=== PATIENT | male | born 1980 | race African-American/Black ===

== ENCOUNTER 2020-06-17 10:44 | Inpatient (IN) | payer BC, OTHER ==
[2020-06-17] MEDS ORDERED: Calcium Chloride 1 GM/10 ML Abboject SYRINGE ONE (11:09)
[2020-06-17] MEDS ORDERED: Sodium Bicarb 50 MEQ/50 ML Abboject 8.4% SYRINGE ONE (11:09)
[2020-06-17] MEDS ORDERED: EPINEPHrine 1 MG/10 ML Abboject SYRINGE ONE (11:09)
--- NOTE | 2020-06-17 11:25 | PDOC.HHP ---
Hospitalist HPI - History of Present Illness Cough/SOB/fever/diarrhea History of Present Illness: Mr Shook is a 39-year-old male with a past medical history of hypertension and COVID infection diagnosed 1 months ago, presented to [place] ED with above symptoms. Over the past week, Pt has been feeling gen weak and fatigued. He started developing cough, shortness of breath, nausea, diarrhea and fever three days ago. Symptoms are progressively getting worse. Fever was associated with chills. Cough was productive with small amt of mucus. No wheezing reported. No new sick contacts. Denies recent immobilzation. No CP/palpitations/orthopnea/LE edema or syncope. ED Course: VITAL SIGNS ThuJun 17, 2020 08:09 HUE Nevarez Ladonna BP: 117/75, Pulse: 137, Resp: 24, Temp: 101 (Tympanic), Pain: 5, O2 sat: 94 on ( Room Air), Time: 06/17/2020 08:09. VITAL SIGNS ThuJun 17, 2020 09:00 HUE Nevarez Ladonna BP: 114/77, Pulse: 139, O2 sat: 94 on (Room Air), Time: 06/17/2020 09:00. VITAL SIGNS ThuJun 17, 2020 09:25 HUE Nevarez Ladonna BP: 130/85, Pulse: 130, Resp: 22, O2 sat: 98 on (Room Air), Time: 06/17/2020 09: 25. VITAL SIGNS ThuJun 17, 2020 09:50 HUE Nevarez Ladonna BP: 119/65, Pulse: 132, Resp: 26, O2 sat: 94 on (Room Air), Time: 06/17/2020 09: 50. VITAL SIGNS ThuJun 17, 2020 10:15 HUE Nevarez Ladonna BP: 117/67, Pulse: 126, Resp: 16, O2 sat: 98 on (Room Air), Time: 06/17/2020 10: 15. VITAL SIGNS ThuJun 17, 2020 10:45 HUE Nevarez Ladonna BP: 106/57, Pulse: 123, Resp: 20, O2 sat: 97 on (Room Air), Time: 06/17/2020 10: 45. VITAL SIGNS ThuJun 17, 2020 11:00 HUE Nevarez Ladonna BP: 127/76, Pulse: 127, Resp: 20, O2 sat: 95 on (Room Air), Time: 06/17/2020 11: 00. MEDICATION ADMINISTRATION SUMMARY Agra Jun 17, 2020 11:28 Drug Name Dose Ordered Route Status Time vancomycin in dextrose 5 % 2 g IV Piggy Back Acknowledged 08:34 06/17/2020 *potassium chloride in 0.9%NaCl 1 L IV Fluid Infusion Given 10:18 06/17/2020 *azithromycin intravenous 500 mg IV Piggy Back Given 10:00 06/17/2020 *enoxaparin 40 mg Subcutaneous Given 09:24 06/17/2020 *cefepime injection 2 g IV Piggy Back Given 09:23 06/17/2020 *Zofran intravenous 4 mg IV Push Given 09:20 06/17/2020 *sodium chloride 0.9 % intravenous 30 mL/kg IV Fluid Infusion Given 09:17 2019 Tylenol 1000 mg Oral Given 08:57 06/17/2020 Hospitalist ROS - Medication Medications: lisinopril-hydrochlorothiazide tablet : Strength - 10 mg-12.5 mg : ORAL Patient Dose: 1 tab(s) Oral once a day ALLERGIES: NKDA Hospitalist History - Past Medical History Cardiac: reports: HTN Pulmonary: reports: Other (Recent COVID - dianosed 05/17) - Past Surgical History Past Surgical History: reports: no pertinent history - Family History Family History: reports: no pertinent history (reviewed) - Social History Smoking Status: Never smoker Occupation: [employer] - [employer] Equipment - Exam General Appearance: NAD, awake alert Eye: PERRL, anicteric sclera ENT: normocephalic atraumatic, moist mucosa Neck: supple, no lymphadenopathy Heart: RRR, no murmur, no gallops Heart - other findings: tachycardia Respiratory: normal chest expansion, rales Gastrointestinal: soft, non-tender, non-distended, normal bowel sounds Extremities: no edema Neurological: cranial nerve grossly intact, no focal deficits Psychiatric: normal affect, normal behavior Hospitalist Results - Labs Result Diagrams: 06/18/20 04:20 06/18/20 04:20 Lab results: LABORATORY Agra Jun 17, 2020 09:45 MD Dubon Anthony Measurement Result Units Range Comprehensive Metabolic Panel Collection DT: Agra Jun 17, 2020 09:22 Sodium 137 mmol/L 136-145 Potassium 3.2 - L mmol/L 3.5-5.1 Chloride 101 mmol/L 98-107 Carbon Dioxide 23 mmol/L 22-29 Anion Gap 16 mmol/L 10-20 BUN (Urea Nitrogen) 14 mg/dL 8.9-20.6 Creatinine 1.35 - H mg/dL 0.7-1.3 Estimated GFR-MDRD 72 Reference Range for Estimated GFR: Greater than 90 mL/min/1.73 m2 NOTE: The MDRD equation has not been validated for use with the elderly (over 70 years of age), women, patients with serious comorbid condition or persons with extremes of body size, muscle mass, or nutritional status. Glucose 172 - H mg/dL 70-105 Calcium 8.9 mg/dL 7.8-10.44 Bilirubin, Total 1.7 - H mg/dL 0.2-1.2 Protein, Total 7.5 g/dL 6.0-8.3 Albumin 3.6 g/dL 3.5-5.0 Globulin 3.9 - H g/dL 2.4-3.5 Alb/Glob Ratio 0.9 - L g/dL 1.2-2.2 Alkaline Phosphatase 61 U/L 40-110 AST (SGOT) 78 - H U/L 5-34 ALT (SGPT) 119 - H U/L 8-55 Measurement Result Units Range Lactic Acid for Sepsis Collection DT: ThuJun 17, 2020 09:22 Lactic Acid - Sepsis 2.0 mmol/L 0.5-2.2 Measurement Result Units Range D-Dimer (Quantitative) Collection DT: ThuJun 17, 2020 09:25 D-Dimer Test 3.46 - H *mcg/mL 0.27-0.43 * Reference Range Units: mcg/mL of fibrinogen equivalent units(FEU) Based upon a retrospective study of [facility] patients in March 2006, a result of Less than 0.44 mcg/mL FEU is predictive of the absence of a DVT or PE. Measurement Result Units Range Influenza A&B Ag Screen: [id number] Collection DT: ThuJun 17, 2020 09:39 See comment below @ ER ROOM#: [id number] Source: Nasopharyngeal swab Spec Desc: Influenza A Antigen: NEGATIVE for the presence of INFLUENZA A Antigen Influenza B Antigen: NEGATIVE for the presence of INFLUENZA B Antigen The rapid Flu A&B test can distinguish between influenza A Influenza A&B Ag Screen See comment below and B viruses, but it does not differentiate influenza Influenza A&B Ag Screen See comment below subtypes. Influenza A&B Ag Screen See comment below Influenza A&B Ag Screen See comment below Influenza A&B Ag Screen See comment below Influenza A&B Ag Screen See comment below characteristics of this device with human specimens infected Influenza A&B Ag Screen See comment below with the 2008 H1N1 influenza virus have not been Influenza A&B Ag Screen See comment below established. For example: this test cannot distinguish Influenza A&B Ag Screen See comment below influenza infections caused by novel H1N1 influenza A Influenza A&B Ag Screen See comment below viruses versus seasonal influenza A viruses. Influenza A&B Ag Screen See comment below Influenza A&B Ag Screen See comment below A negative result does not exclude influenza virus Influenza A&B Ag Screen See comment below infection; therefore, if more conclusive testing is desired, Influenza A&B Ag Screen See comment below follow up confirmatory testing is warranted. Influenza A&B Ag Screen See comment below Measurement Result Units Range CBC with Differential Collection DT: Agra Jun 17, 2020 09:22 White Blood Cell (WBC) Count 8.3 thou/uL 4.8-10.8 Red Blood Cell (RBC) Count 5.53 mill/uL 4.70-6.10 Hemoglobin 13.5 - L g/dL 14.0-18.0 Hematocrit 42.8 % 42.0-52.0 Mean Corpuscular Volume 77.3 - L fL 78.0-98.0 Mean Corpuscular Hemoglobin 24.4 - L pg 27.0-31.0 Mean Corpuscular HGB CONC 31.6 - L g/dL 32.0-36.0 RBC Distribution Width 14.4 % 11.5-14.5 Platelet Count 109 - L thou/uL 130-400 Mean Platelet Volume 8.6 fL 7.4-10.4 Neutrophil 48 % 42-75 Band 38 - H % 5-11 Lymphocytes 3 - L % 21-51 Monocytes 11 - H % 0-10 Anisocytosis SLIGHT = 6-15 cells (100X) 0-5/hpf Microcytosis SLIGHT = 6-15 cells (100X) 0-5/hpf Hypochromia SLIGHT = 6-15 cells (100X) 0-5/hpf Large Platelets SLIGHT Platelet Morphology Comment Appears Decreased - L Measurement Result Units Range Magnesium Collection DT: Agra Jun 17, 2020 09:58 Magnesium 1.6 mg/dL 1.6-2.6 Measurement Result Units Range PTT Collection DT: Agra Jun 17, 2020 10:27 See comment below Anticoagulant? NONE Medical Necessity SUSPECT COAGULOPATHY PTT 35.7 sec 22.9-36.1 Measurement Result Units Range Protime with INR Collection DT: Agra Jun 17, 2020 10:27 See comment below Anticoagulant? NONE Medical Necessity SUSPECT COAGULOPATHY Prothrombin Time 15.5 - H sec 12.0-14.7 INR-International Normal Ratio 1.2 ATTENTION: READ CAREFULLY The recommended therapeutic ranges for oral anticoagulant treatments are: Low Intensity: 1.5 - 2.0 Moderate Intensity: 2.0 - 3.0 High Intensity (1): 2.5 - 3.5 High Intensity (2): 3.0 - 4.0 CRITICAL: > 4.0 Measurement Result Units Range CRP (Inflammatory) Collection DT: Agra Jun 17, 2020 10:41 CRP (Inflammatory) 33.14 - H mg/dL = or < 0.5 - EKG Interpretation EKG: Tele ST - reviewed by me - Radiology Interpretation CT scan - chest Status: image reviewed by me Additional Comment: Chest CT, without contrast : Right middle lobe pneumonia with air bronchograms and perihilar lymphadenopathy. Hospitalist H&P A/P - Plan Plan: Severe Sepsis due to RML Pneumonia ?staph Gen weakness/Fatigue Lactic acidosis Recent COVID-19 - diagnosed 05/17 Diarrhea - r/o C diff CKD 2 Sinus tachycardia due to above HTN Morbid obesity 43.2 PLAN: COVID swab Flu ruled out Tele monitoring Empiric Atbx - Vanc/Cefepime/Azithromycin Monitor infl markers Check for Cdiff due to recent Atbx use IVF Vitals Q4h ID consultation Sputum GS and culture AM labs Check BNP/troponin Hold HTN meds
[2020-06-17] MEDS ORDERED: Ondansetron ODT 4 MG TAB PO PRN (13:01)
[2020-06-17] MEDS ORDERED: cloNIDine 0.1 MG TAB PO PRN (13:01)
[2020-06-17] MEDS ORDERED: Sodium Chloride 0.9% 1,000 ML IV SCH ×2 (13:01→15:15)
[2020-06-17] MEDS ORDERED: Vancomycin 1 GM in Premix Bag 1 BAG IVPB SCH (13:01)
[2020-06-17] MEDS ORDERED: Calcium Carbonate 500 MG ChewTAB PO PRN (13:01)
[2020-06-17] MEDS ORDERED: Senokot S 8.6-50 MG TAB PO PRN (13:01)
[2020-06-17] MEDS: Ondansetron PF 4 MG/2 ML Vial IVP PRN ×2 (14:07→21:38)
[2020-06-17] MEDS: ALPRAZolam 0.25 MG TAB PO PRN (14:07)
[2020-06-17 14:31] LABS: Lactic Acid 4.2 mmol/L (0.5-2.2)
[2020-06-17 14:37] LABS: Troponin I 0.014 ng/mL (< 0.028)
[2020-06-17] MEDS ORDERED: Vancomycin HCl 2.5 GM in Sodium Chloride 0.9% 500 ML IVPB SCH (15:00)
[2020-06-17 15:07] VITALS: BMI 43.2
[2020-06-17] MEDS: Acetaminophen 325 MG TAB PO PRN ×2 (15:25→21:29)
[2020-06-17 17:16] LABS: SARS-CoV-2 IgG Ab Reactive (NonReactive); SARS-CoV-2 IgG Index 7.31 S/CO (< 1.40)
[2020-06-17] MEDS ORDERED: Ketorolac Tromethamine 30 MG/ML VIAL IVP SCH ×2 (17:30→20:00)
--- NOTE | 2020-06-17 18:09 | CON ---
DATE OF CONSULTATION: REASON FOR CONSULTATION: General malaise, fever following recent episode of COVID infection with transient recovery and then recrudescence of symptoms. 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 He about a month ago was seen and diagnosed with COVID. His management with did not require hospital admission and after a couple weeks, he felt better, improved, went back to his baseline, back to work eventually. Then a few days ago, he started having, what he describes as, discomfort in his chest. He did have some cough, but that has resolved. He had some loose stool, which has resolved. Had some fever as well, so he was brought in and admitted. The initial findings included a BP 117/75, pulse 137, respiratory rate 24, and temperature 101, O2 saturations were 94 on room air and he has remained between 94 98 on room air. He appeared ill in the emergency room, a little bit tachypneic, diminished breath sounds in lower lobes. He was tachycardic. Currently, he is still not feeling well, but is not having any specific pain, just a nonspecific discomfort in the chest. Does not have myalgias or arthralgias. No headaches. No dyspnea. No sputum production. No abdominal pain. No genitourinary symptoms, no diarrhea anymore. PAST MEDICAL HISTORY: Obesity, hypertension. ALLERGIES: NONE. MEDICATIONS: Had been on lisinopril at home. 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 Never smoker. FAMILY HISTORY: Hypertension. SURGICAL HISTORY: Negative. ALLERGIES: NEGATIVE. PHYSICAL EXAMINATION: VITAL SIGNS: In the hospital include a temperature max of 103.4, BP 130/74, O2 saturations 94% to 100%, tachycardic at 140. GENERAL: He is oriented, follows commands, pleasant. SKIN: Normal. There is no lymphadenopathy. HEENT: Ocular movements conjugate. Oral cavity normal. Teeth in good shape. NECK: Supple. LUNGS: Symmetric, clear breath sounds. HEART: S1, S2 regular rate. ABDOMEN: Soft, not distended or tender. No ascites. No bladder distention. MUSCULOSKELETAL: No joint inflammatory activity. No muscle tenderness. EXTREMITIES: Pulses 1+ in dorsalis pedis. Plantar responses are flexor. No clonus. Moves extremities equally. NEUROLOGIC: Awake, alert, oriented, follows commands. Speech is normal. LABORATORY DATA: Lactic acid is 4.2, ferritin 3900. BNP 14. White cell count 8.3, hemoglobin 13, platelets 109,000 with 82% bands. INR 1.2. D-dimer 3.46. Creatinine 1.35. Bilirubin 1.7, AST 78, ALT 119, albumin 3.6, globulin 3.9. He had a reactive COVID antibody, high titers. A repeat SARS-CoV2 PCR I believe is pending at this moment. CT chest shows a right lower lobe infiltrate with air bronchograms and some reactive lymphadenopathy. ASSESSMENT: Hypertension, recent COVID infection, reported in [place] and treated in the outpatient setting with recovery and now fever with chest discomfort and dense consolidation which appears more like a bacterial pneumonia than COVID infection. DISCUSSION: This appears to be a postviral bacterial infection and I agree with the antimicrobial regimen administered. We will see what the results of the COVID repeat PCR returns clerk to be and we will submit Legionella and Streptococcus pneumoniae antigen in the urine. The other concern would be with that inflammatory process that has been described in children and sometimes in young adults post COVID infection, but here we do have a very focal lung process and I think we should address it as such and see if there is response to the antimicrobial therapy. Job ID: [id number]
[2020-06-17] MEDS: Enoxaparin Sodium 40 MG/0.4 ML SYRINGE SC SCH (19:19)
[2020-06-17] MEDS: Sodium Chloride 0.9% 1,000 ML IV SCH (19:19)
[2020-06-17] MEDS: Saccharomyces boulardii 250 MG CAP PO SCH (19:20)
[2020-06-17] MEDS: Famotidine 20 MG TAB PO SCH (19:20)
[2020-06-17] MEDS: Zinc Sulfate 220 MG CAP PO SCH (19:20)
[2020-06-17] MEDS ORDERED: diphenhydrAMINE 25 MG CAP PO SCH (20:15)
[2020-06-17 20:36] LABS: Lactic Acid 3.3 mmol/L (0.5-2.2)
[2020-06-17] MEDS: Cefepime 2 GM in Sodium Chloride 0.9% 100 ML IVPB SCH (21:29)
[2020-06-17] MEDS: HYDROcodone/Acetaminophen 5/325 mg Tablet PO PRN (21:38)
[2020-06-18] MEDS: Vancomycin 1.5 GRAM/300 ML BAG 1.5 GM in Premix Bag 1 BAG IVPB SCH ×2 (03:03→14:49)
[2020-06-18] MEDS: Sodium Chloride 0.9% 1,000 ML IV SCH ×3 (03:04→14:57)
[2020-06-18] MEDS: Ondansetron PF 4 MG/2 ML Vial IVP PRN (03:17)
[2020-06-18] MEDS: HYDROcodone/Acetaminophen 5/325 mg Tablet PO PRN ×2 (03:17→08:15)
[2020-06-18 03:59] LABS: Strep pneumo Urine Ag NEGATIVE (NEGATIVE)
[2020-06-18 05:07] LABS: Lactic Acid 3.9 mmol/L (0.5-2.2)
[2020-06-18 05:16] LABS: ALT (SGPT) 123 U/L (8-55); AST (SGOT) 97 U/L (5-34); Albumin 3.2 g/dL (3.5-5.0); Alkaline Phosphatase 56 U/L (40-110); Anion Gap 16 mmol/L (10-20); BUN (Urea Nitrogen) 13 mg/dL (8.9-20.6); Bilirubin, Total 1.7 mg/dL (0.2-1.2); Calc. Creatinine Clearance 132 mL/min (70-130); Calcium 7.6 mg/dL (7.8-10.44); Carbon Dioxide 18 mmol/L (22-29); Chloride 107 mmol/L (98-107); Estimated GFR-MDRD 69; Globulin 3.1 g/dL (2.4-3.5); Glucose 104 mg/dL (70-105); Protein, Total 6.3 g/dL (6.0-8.3); Sodium 138 mmol/L (136-145)
[2020-06-18 05:42] LABS: Band 34 % (5-11); Eosinophils 1 % (0-10); Hemoglobin 12.1 g/dL (14.0-18.0); Hypochromia SLIGHT = 6-15 cells (100X) (0-5/hpf); Lymphocytes 6 % (21-51); MDiff Complete? YES; Mean Corpuscular Hemoglobin 25.5 pg (27.0-31.0); Mean Corpuscular Volume 79.9 fL (78.0-98.0); Mean Platelet Volume 11.1 fL (7.4-10.4); Metamyelocyte 1 % (0-0); Monocytes 12 % (0-10); Neutrophil 46 % (42-75); Platelet Count 101 thou/uL (130-400); Platelet Morphology Comment Appears Decreased; RBC Distribution Width 15.9 % (11.5-14.5); Red Blood Cell (RBC) Count 4.74 mill/uL (4.70-6.10); White Blood Cell (WBC) Count 9.9 thou/uL (4.8-10.8)
[2020-06-18] MEDS: ALPRAZolam 0.25 MG TAB PO PRN (05:44)
[2020-06-18] MEDS ORDERED: diphenhydrAMINE 25 MG CAP PO PRN (06:13)
[2020-06-18] MEDS: Potassium Chloride 20 MEQ TAB PO SCH ×3 (08:15→15:55)
[2020-06-18] MEDS: Famotidine 20 MG TAB PO SCH (08:15)
[2020-06-18] MEDS: Enoxaparin Sodium 40 MG/0.4 ML SYRINGE SC SCH (08:16)
[2020-06-18] MEDS: Cefepime 2 GM in Sodium Chloride 0.9% 100 ML IVPB SCH ×2 (08:17→19:56)
--- NOTE | 2020-06-18 08:36 | PDOC.HOSPP ---
- Subjective Encounter Date: 06/18/20 Encounter Time: 09:30 Subjective: Patient seen and examined for Pneumonia. SOB on mild exertion. On O2 supp. No CP. No new complaints. No overnight events - Objective Vital Signs & Weight: Vital Signs (12 hours) Temp Pulse Resp BP Pulse Ox 06/18/20 07:45 101.6 F H 148 H 40 H 94 L 06/18/20 05:45 100.8 F H 06/18/20 04:59 101.0 F H 06/18/20 03:25 101.5 F H 136 H 28 H 138/89 93 L 06/17/20 23:46 100.7 F H 124 H 32 H 110/53 L 94 L 06/17/20 22:32 94 L 06/17/20 21:28 102.2 F H Weight Weight 284 lb 3.2 oz I&O: 06/17/20 06/18/20 06/19/20 06:59 06:59 06:59 Intake Total 1980 Output Total 350 Balance 1630 Result Diagrams: 06/18/20 04:20 06/18/20 04:20 Additional Labs: Laboratory Tests 06/17/20 06/17/20 06/17/20 14:02 14:02 14:02 Lactic Acid Total Bilirubin Troponin I 0.014 B-Natriuretic Peptide 14.0 SARS-CoV-2 IgG Ab Index 7.31 Ur Strep pneumoniae Ag 06/17/20 06/17/20 06/18/20 14:02 20:09 03:15 Lactic Acid 4.2 H* 3.3 H Total Bilirubin Troponin I B-Natriuretic Peptide SARS-CoV-2 IgG Ab Index Ur Strep pneumoniae Ag NEGATIVE 06/18/20 06/18/20 04:20 04:20 Lactic Acid 3.9 H Total Bilirubin 1.7 H Troponin I B-Natriuretic Peptide SARS-CoV-2 IgG Ab Index Ur Strep pneumoniae Ag Laboratory Tests 06/17/20 06/18/20 06/18/20 09:20 04:20 10:15 Bicarbonate Actual 17.6 L ABG pH 7.21 L* ABG pCO2 45.1 H ABG pO2 64.6 L Phosphorus 2.0 L Magnesium 1.2 L C-Reactive Protein 33.14 H Radiology Reviewed by me: Yes (CXR - RML Pneumonia) EKG Reviewed by me: Yes (Tele ) Hospitalist ROS - Review of Systems Respiratory: reports: cough, dry, shortness of breath, SOB with excertion. denies: hemoptysis, pleuritic pain, sputum, wheezing, other Cardiovascular: denies: chest pain, palpitations, orthopnea, paroxysmal noc. dyspnea, edema, light headedness, other Gastrointestinal: denies: nausea, vomiting, abdominal pain, diarrhea, constipation, melena, hematochezia, other - Medication Medications: Active Medications Generic Name Dose Route Start Last Admin Trade Name Freq PRN Reason Stop Dose Admin Acetaminophen 325 mg 06/17/20 13:01 06/17/20 21:29 Tylenol PO 325 mg Q6H PRN Administration Headache/Fever or Pain Hydrocodone Bitart/Acetaminophen 1 tab 06/17/20 13:01 06/18/20 08:15 Piercy 5/325 PO 1 tab Q4H PRN Administration Moderate Pain (4-6) Alprazolam 0.25 mg 06/17/20 13:41 06/18/20 05:44 Xanax PO 0.25 mg BIDPRN PRN Administration Anxiety Ascorbic Acid 1,000 mg 06/18/20 09:00 06/18/20 08:15 Vitamin C PO 1,000 mg DAILY KHANH Administration Diphenhydramine HCl 25 mg 06/18/20 06:13 06/18/20 06:30 Benadryl PO 25 mg Q6H PRN Administration Itching & Insomnia Enoxaparin Sodium 40 mg 06/17/20 21:00 06/18/20 08:16 Lovenox SC 40 mg 0900,2100 KHANH Administration Famotidine 20 mg 06/17/20 21:00 06/18/20 08:15 Pepcid PO 20 mg BID KHANH Administration Cefepime HCl 2 gm/ Sodium 100 mls @ 200 mls/hr 06/17/20 21:00 06/18/20 08:17 Chloride IVPB 100 mls 0900,2100 KHANH Administration Vancomycin HCl 1.5 gm/ Device 300 mls @ 200 mls/hr 06/18/20 03:00 06/18/20 03 :03 IVPB 300 mls 0300,1500 KHANH Administration Sodium Chloride 1,000 mls @ 150 mls/hr 06/17/20 17:17 06/18/20 03:04 Normal Saline 0.9% IV 1,000 mls .Q6H40M KHANH Administration Multivitamins 1 tab 06/18/20 09:00 06/18/20 08:15 Theragran PO 1 tab DAILY KHANH Administration Ondansetron HCl 4 mg 06/17/20 13:01 06/18/20 03:17 Zofran IVP 4 mg Q6H PRN Administration Nausea/Vomiting Potassium Chloride 20 meq 06/18/20 08:00 06/18/20 08:15 K-Dur PO 06/18/20 17:01 20 meq TID-WM KHANH Administration Saccharomyces Boulardii 250 mg 06/17/20 21:00 06/17/20 19:20 Florastor PO 250 mg HS KHANH Administration Zinc Sulfate 220 mg 06/17/20 21:00 06/17/20 19:20 Zinc Sulfate PO 220 mg HS KHANH Administration - Exam General Appearance: ill appearing Heart: RRR (tachycardic), no gallops Respiratory: no wheezes, normal chest expansion, rales, rhonchi, tachypneic Gastrointestinal: soft, non-distended, no guarding, no rigidity Extremities: no cyanosis, no clubbing Neurological: no new deficit Psychiatric: normal affect, A&O x 3 Hosp A/P - Plan DVT proph w/lovenox, DVT proph w/SCDs Severe Sepsis due to RML Pneumonia ?staph Acute hypoxic resp failure Gen weakness/Fatigue Lactic acidosis Hypokalemia/Hypomagnesemia/Hypophosphatemia Abn LFTS - prob due to Sepsis Recent COVID-19 - diagnosed 05/17 Diarrhea - C diff ruled out CKD 2 Sinus tachycardia due to above HTN Morbid obesity 43.2 Anxiety PLAN: 06/18 Requiring O2/febrile with persistent tachycardia Replace electrolytes Cont IVF Cont Vanc/Cefep/Azith Monitor Vanc levels Consult Pulm STAT ABG - done CXR - done AM labs EKG - ST Update : - Pt was later intubated and placed on mech Vent. Also started on pressors 06/17 on RA COVID swab Flu ruled out Tele monitoring Empiric Atbx - Vanc/Cefepime/Azithromycin Monitor infl markers Check for Cdiff due to recent Atbx use IVF Vitals Q4h ID consultation Sputum GS and culture AM labs Check BNP/troponin Hold HTN meds
[2020-06-18] MEDS ORDERED: ALPRAZolam 0.25 MG TAB PO PRN (08:44)
[2020-06-18] MEDS ORDERED: ALPRAZolam 0.25 MG TAB PO SCH (09:00)
[2020-06-18] MEDS ORDERED: Multivit, Therapeutic 1 TAB PO SCH (09:00)
[2020-06-18] MEDS ORDERED: Ascorbic Acid 500 mg Chewable Tablet PO SCH (09:00)
[2020-06-18 09:24] LABS: Magnesium 1.2 mg/dL (1.6-2.6)
[2020-06-18 10:39] LABS: Actual Bicarbonate (HCO3a) 17.6 mEq/L (22-28); Base Excess (BEa) -10.1 mEq/L (-2.0 to +3.0); CO2 Tension 45.1 mmHg (35.0-45.0); Calcium, Ionized (arterial) 1.01 mmol/L (1.12-1.30); Carboxyhemoglobin (COHb) 0.7 gm% (0.0-3.0); O2 Tension (PaO2), arterial 64.6 mmHg (80.0-100.0); Potassium - ABG Lab 3.59 mmol/L (3.70-5.30)
--- NOTE | 2020-06-18 11:02 | RAD ---
EXAM: CHEST ONE VIEW HISTORY: Shortness of breath. COMPARISON: 06/15/2020 and CTA chest on 06/17/2020 FINDINGS: Again noted is elevation the right hemidiaphragm. There is also increased density seen at the right l anju base which was not appreciated on the prior chest x-ray, there was consolidation seen at the right lung base associated pleural effusion on recent CTA chest. Left lung remains clear. Right cardi ac border is obscured. Pulmonary vasculature is within normal limits. Gaseous distention of the stomach is again seen. No other interval change. IMPRESSION: Elevation right hemidiaphragm with increased density right lung base. Increased density likely corres ponds to consolidation in the right middle lobe worrisome for pneumonia and associated small right pleural effusion seen on CTA chest on 06/17/2020. Follow-up to resolution is recommended.
[2020-06-18] MEDS ORDERED: PROPOFOL 200 MG/20 ML VIAL ONE (11:03)
[2020-06-18] MEDS ORDERED: Succinylcholine Chloride 20 MG/ML 10 ml SYRINGE FS ONE (11:03)
[2020-06-18] MEDS ORDERED: Rocuronium Bromide 10 MG/ML (10ML VIAL) ONE (11:03)
[2020-06-18] MEDS ORDERED: Propofol 1,000 MG/100 ML VIAL IV ONE (11:21)
[2020-06-18 11:24] LABS: ALV-art Gradient 78.665 (0-20); Puncture Site LRA; pH, Arterial 7.21 (7.35-7.45)
[2020-06-18] MEDS ORDERED: Fentanyl BOLUS 250 ML IVPB PRN (12:11)
[2020-06-18] MEDS ORDERED: fentaNYL Citrate/PF 2,000 MCG in Sodium Chloride 0.9% 60 ML IV SCH (12:11)
[2020-06-18] MEDS ORDERED: Lorazepam 2 MG/ML VIAL SLOW IVP PRN (12:11)
[2020-06-18] MEDS ORDERED: DISCONTINUE PREVIOUS NARCOTIC PAIN MEDICATIONS AND BENZODIAZEPINES FS SCH (12:11)
[2020-06-18] MEDS ORDERED: Morphine 2 MG/ML VIAL SLOW IVP PRN (12:11)
[2020-06-18] MEDS ORDERED: Propofol BOLUS 1,000 MG/100 ML VIAL IV PRN (12:11)
[2020-06-18] MEDS ORDERED: Fentanyl 100 MCG/2 ML VIAL ONE (12:15)
[2020-06-18] MEDS ORDERED: Vecuronium 10 MG VIAL ONE (12:16)
[2020-06-18] MEDS: Albumin 25% 25 GM/100 ML BOT IVPB SCH ×3 (12:20→22:25)
[2020-06-18 12:24] LABS: Actual Bicarbonate (HCO3a) 14.5 mEq/L (22-28); Base Excess (BEa) -11.7 mEq/L (-2.0 to +3.0); CO2 Tension 33.9 mmHg (35.0-45.0); Calcium, Ionized (arterial) 0.98 mmol/L (1.12-1.30); Carboxyhemoglobin (COHb) 0.1 gm% (0.0-3.0); Hemoglobin (Hb) 12.7 g/dL (14.0-18.0); O2 Tension (PaO2), arterial 144.4 mmHg (80.0-100.0)
[2020-06-18] MEDS ORDERED: Sodium Bicarb 50 MEQ/50 ML Abboject 8.4% SYRINGE ONE ×2 (12:29→23:00)
[2020-06-18 12:30] LABS: ALV-art Gradient 526.225 (0-20); Puncture Site LRA; pH, Arterial 7.25 (7.35-7.45)
[2020-06-18] MEDS ORDERED: Albumin 5% 0 ML ONE (12:31)
[2020-06-18] MEDS ORDERED: Albumin 25% 25 GM/100 ML BOT IVPB SCH (13:00)
[2020-06-18] MEDS ORDERED: Fentanyl 100 MCG/2 ML VIAL SLOW IVP SCH (13:00)
[2020-06-18] MEDS ORDERED: Sodium Chloride 0.9% 1,000 ML IV SCH (13:00)
[2020-06-18] MEDS ORDERED: Sodium Bicarbonate 100 MEQ in Dextrose 5% in Water 1,000 ML IV SCH (13:00)
[2020-06-18] MEDS ORDERED: Sodium Bicarbonate 150 MEQ in Dextrose 5% in Water 1,000 ML IV SCH (13:45)
[2020-06-18] MEDS: Azithromycin 500 MG in Sodium Chloride 0.9% 250 ML 250 ML IVPB SCH ×2 (14:47→16:38)
[2020-06-18] MEDS: Propofol 1,000 MG/100 ML VIAL IV PRN ×2 (14:54→21:00)
[2020-06-18] MEDS ORDERED: Norepinephrine 8 MG in Dextrose 5% in Water 242 ML IVPB PRN (15:44)
[2020-06-18] MEDS ORDERED: Norepinephrine 8 MG/0.9% NS 250 ML ONE (15:55)
[2020-06-18] MEDS ORDERED: Norepinephrine 8 MG/0.9% NS 250 ML IVPB SCH (16:23)
[2020-06-18 16:36] VITALS: BP 99/70
--- NOTE | 2020-06-18 17:04 | PRG ---
DATE OF SERVICE: 06/18/2020 SUBJECTIVE: Mr. Shook has taken a turn for the worst. He had to be transferred to the ICU. He is now mechanically ventilated. He had very high temperature elevation overnight. OBJECTIVE: VITAL SIGNS: His temperature now is 97, but it is most likely due to the corticosteroid that is administered; blood pressure is 101/72; pulse 132; respiratory rate 31; O2 sats are 95% on 60% FiO2. LUNGS: Symmetric, coarse breath sounds. HEART: S1 and S2, regular rate. ABDOMEN: Soft. Not distended. Indwelling Frey catheter. NEUROLOGIC: Cannot test his motion right now. LABORATORY DATA: White cell count 9.9, hemoglobin 12.1, platelets 101, with 34% bands. PH 7.25, pCO2 of 33, pO2 of 144. Sodium 138, creatinine 1.4, bilirubin 1.7, AST 97, ALT 123. Phosphorus 2.0, magnesium 1.2, albumin 3.2. SARS-CoV IgG antibody was reactive. Streptococcus pneumoniae antigen negative. Chest x-ray with elevation of right hemidiaphragm, increased density right lung base, likely consolidation, small pleural effusion likely. ASSESSMENT: Recent COVID infection, which was managed in the outpatient setting with improvement and now with this syndrome with cough, some loose stools, fever, and right lower base infiltrate. He did have a chest CT angiogram, which did not show any evidence of pulmonary embolism. Hypertension and COVID infection, treated in the outpatient setting, now with this right lower lobe infiltrate and sepsis, requiring mechanical ventilation. The possibility of that COVID associated inflammatory process needs to be considered as well versus a postviral bacterial infection. He is on broader spectrum with vancomycin added to the regimen. Job ID: [id number]
[2020-06-18] MEDS: methylPREDNISolone Sod Succ 40 MG VIAL IVP SCH ×2 (17:26→22:25)
[2020-06-18] MEDS ORDERED: Magnesium Sulfate 4 GM in Sodium Chloride 0.9% 250 ML 250 ML IVPB SCH (18:15)
[2020-06-18] MEDS ORDERED: Potassium Phosphate 30 MMOL in Sodium Chloride 0.9% 500 ML IVPB SCH (18:15)
[2020-06-18] MEDS: Saccharomyces boulardii 250 MG CAP PO SCH (19:57)
[2020-06-18] MEDS: Zinc Sulfate 220 MG CAP PO SCH (19:57)
[2020-06-18] MEDS: Enoxaparin Sodium 60 MG/0.6 ML SYRINGE SC SCH ×2 (20:49→21:00)
[2020-06-18] MEDS ORDERED: Famotidine/PF 20 mg/2ml Vial SLOW IVP SCH (21:00)
[2020-06-18] MEDS ORDERED: Vecuronium 10 MG VIAL IVP PRN (21:57)
[2020-06-18] MEDS: Acetaminophen 325 MG TAB PO PRN (22:25)
[2020-06-18 22:56] LABS: Base Excess (BEa) -20.3 mEq/L (-2.0 to +3.0); CO2 Tension 68.2 mmHg (35.0-45.0); Hemoglobin (Hb) 12.1 g/dL (14.0-18.0); O2 Tension (PaO2), arterial 49.6 mmHg (80.0-100.0)
[2020-06-18 22:57] LABS: Calcium, Ionized (arterial) 1.35 mmol/L (1.12-1.30); Carboxyhemoglobin (COHb) 0.3 gm% (0.0-3.0); Potassium - ABG Lab 4.71 mmol/L (3.70-5.30); Puncture Site RRA
[2020-06-18] MEDS ORDERED: Acetaminophen 650 MG Suppository PR SCH (23:00)
--- NOTE | 2020-06-18 23:16 | RAD ---
Exam: Chest one view HISTORY:CODE BLUE Comparison: 06/18/2020 FINDINGS: Cardiac silhouette:Cardiomegaly. Aorta: Unremarkable Pulmonary vessels: Normal Costophrenic angles: Clear LUNGS: Diminished lung volumes, similar to the previous exam. Pneumothorax: No definite pneumothorax Osseous abnormalities: None Lines and tubes: Nasogastric tube extends beyond the diaphragm. Distal tip appears to terminate in th e stomach. Endotracheal tube is just beyond the clavicles and appears to be approximately 1 cm above the nikia. IMPRESSION: 1. Persistently diminished lung volumes. 2. Endotracheal tube and nasogastric tube as described above. Endotracheal tube is just proximal to t he nikia. Results study discussed with Shayna patient's nurse 06/18/2020 at 11:15 PM Code CR
--- NOTE | 2020-06-19 | PRG ---
DATE OF SERVICE: 06/18/2020 Mr. Shook developed asystole tonight. He had been on pressors prior to that. He was resuscitated. Once he was resuscitated, his pH was noted to be 6.90, CO2 of 68, and PO2 of 49. In approximately 15 to 20 minutes, we restored circulation and coded again. In spite of administration of bicarb during the last code, it was felt that he cannot survive this. The second code was terminated. He was pronounced at 1105 hours. His is apparently on the way from [place], [place]. She will be notified when she arrives. It is felt that he most likely from overwhelming sepsis associated with a bacterial pneumonia downstream from a COVID infection and not secondary to COVID. Critical care time 35 min excluding procedures. Job ID: [id number] MTDD
[2020-06-19 00:06] LABS: Hemoglobin 11.2 g/dL (14.0-18.0); Mean Corpuscular HGB CONC 30.7 g/dL (32.0-36.0); Mean Corpuscular Hemoglobin 26.1 pg (27.0-31.0); Mean Platelet Volume 11.2 fL (7.4-10.4); Platelet Count 104 thou/uL (130-400); RBC Distribution Width 16.5 % (11.5-14.5); Red Blood Cell (RBC) Count 4.28 mill/uL (4.70-6.10)
[2020-06-19 00:12] LABS: ALT (SGPT) 322 U/L (8-55); AST (SGOT) 638 U/L (5-34); Alkaline Phosphatase 65 U/L (40-110); Anion Gap 37 mmol/L (10-20); BUN (Urea Nitrogen) 26 mg/dL (8.9-20.6); Bilirubin, Total 2.1 mg/dL (0.2-1.2); Calc. Creatinine Clearance 40 mL/min (70-130); Calcium 8.6 mg/dL (7.8-10.44); Carbon Dioxide 10 mmol/L (22-29); Chloride 102 mmol/L (98-107); Estimated GFR-MDRD 17; Globulin 2.5 g/dL (2.4-3.5); Glucose 104 mg/dL (70-105); Potassium 3.6 mmol/L (3.5-5.1); Protein, Total 5.5 g/dL (6.0-8.3); Sodium 145 mmol/L (136-145)
[2020-06-19 00:17] LABS: Critical Call Chem Troponin I PT EXP HOUSE SUP SAYS DONT GIVE CRITICAL; Troponin I 1.014 ng/mL (< 0.028)
[2020-06-19 00:20] LABS: Band 34 % (5-11); Lymphocytes 16 % (21-51); MDiff Complete? YES; Metamyelocyte 3 % (0-0); Monocytes 2 % (0-10); Neutrophil 45 % (42-75); Nucleated RBC 1 % (0); Platelet Morphology Comment Appears Decreased
[2020-06-19 03:32] VITALS: TEMP 103.6
--- NOTE | 2020-06-19 07:28 | CON ---
DATE OF CONSULTATION: 06/18/2020 HISTORY OF PRESENT ILLNESS: Omar Shook is a 39-year-old male who was diagnosed with COVID a month ago. He presented with febrile illness this admission. I was consulted when he transferred to the critical care unit. He was initially scheduled to go to the intermediate care unit. Respiratory therapist astutely recommended transfer to the ICU since he only speaks in 3- word sentences. PAST MEDICAL HISTORY: Remarkable for hypertension and obesity. SOCIAL HISTORY: He is a nonsmoker and nondrinker. ALLERGIES: HE HAS NO DRUG ALLERGIES. FAMILY HISTORY: Negative for lung disease in early age. REVIEW OF SYSTEMS: Not obtainable. PHYSICAL EXAMINATION: GENERAL: He is in distress, speaking in 3-word sentences. VITAL SIGNS: Blood pressure heart rate is 130, respiratory rate is 30. HEAD AND NECK: Unremarkable. LUNGS: Remarkable for decreased breath sounds at right base. HEART: Regular rhythm. ABDOMEN: Soft. EXTREMITIES: Without edema. IMAGING: Chest CT showed a dense lateral segment lower lobe alveolar infiltrate. LABORATORY DATA: White count 9.9, hemoglobin 12.1, and platelets 101,000. He had 34% bands. Electrolytes were normal. Creatinine is 1.4. Liver enzymes were mildly elevated. He has a COVID antibody. IMPRESSION: 1. Community-acquired postviral bacterial pneumonia with impending respiratory failure. He subsequently has been intubated by Anesthesia. I have recommended central line placement. Antibiotics will be adjusted by Infectious Disease. 2. Given that COVID patients have a hypercoagulable state for up to 3 months, he will be treated with intermediate dose anticoagulants based on his weight. He will have steroids added. We will follow along with the other physicians caring for him. CRITICAL CARE TIME: 35 minutes. Job ID: [id number] MTDD
--- NOTE | 2020-06-19 07:36 | OP ---
DATE OF PROCEDURE: 06/18/2020 PROCEDURE: Right femoral vein catheter. DESCRIPTION OF PROCEDURE: The femoral vein was cleansed with Betadine for approximately 5 minutes. Once Betadine dried, sterile drape was applied to his right groin. Femoral vein was cannulated at 1st pass. J-wire was easily passed followed by vein dilator. Triple-lumen catheter was inserted and sewn in place x2. Catheter was flushed. Sterile dressing was applied. Job ID: [id number]
--- NOTE | 2020-06-19 12:26 | DIS ---
DATE OF ADMISSION: 06/17/2020 TIME : 2304 hours on 06/18/2020 BRIEF HOSPITAL COURSE: The patient was a 39-year-old male with recent COVID-19 infection diagnosed a month ago, presented to [facility] on May,, with cough, shortness of breath, and fever along with diarrhea. He was feeling generally weak and fatigued. The CT scan of the chest at [facility] was consistent with right middle lobe pneumonia with perihilar lymphadenopathy. CTA of the chest was negative for pulmonary embolism. He was transferred to this facility for hospital admission. The patient was started on IV vancomycin, cefepime, and azithromycin. He was evaluated by Infectious Disease. He was initially on room air. Next day, he started requiring oxygen. He became more tachycardic. For this reason, he was transferred to the intensive care unit. The patient was evaluated by Pulmonary service. He was subsequently intubated and placed on mechanical ventilation. Later he was started on Levophed. The patient had a Code Blue called at 10:34pm on May,. The patient was in asystole. Please refer to the code report for details. He received several medications including epinephrine, sodium bicarbonate, and calcium chloride. CPR was performed. The code ended at 11:04pm. Family was notified. FINAL DIAGNOSES: 1. Acute hypoxic respiratory failure secondary to pneumonia, suspected gram- positive bacteria. 2. Generalized fatigue with weakness on admission. 3. Severe sepsis/Septic shock secondary to right middle lobe pneumonia, suspected gram-positive organism ?Staphylococcus. 4. Lactic acidosis. 5. Recent COVID-19 diagnosed on 05/17. 6. Diarrhea. Clostridium difficile was ruled out. 7. Chronic kidney disease, stage 2. 8. Sinus tachycardia secondary to sepsis. 9. Hypertension. 10. Morbid obesity with a body mass index of 43.2. Job ID: [id number] [facility]
[2020-06-19 13:46] LABS: SARS-CoV-2 MS2 Positive; SARS-CoV-2 N Gene Positive; SARS-CoV-2 S Gene Negative; SARS-CoV-2 by NAA Indeterminate (NotDetected); SARS-CoV-2 orf1ab Negative
== END 2020-06-18 23:05 | disposition expired | DRG 871 ==
LOC: 2SW 12:51 → CCU 06-18 11:19
PROVIDERS: ADMIT Internal Medicine; ATTEND Internal Medicine
PROC: 8E0ZXY6 Isolation (ICD-10-PCS; 2020-06-17)
PROC: 5A1935Z Respiratory Ventilation, Less than 24 Consecutive Hours (ICD-10-PCS; principal; 2020-06-18)
PROC: 0BH17EZ Insertion of Endotracheal Airway into Trachea, Via Natural or Artificial Opening (ICD-10-PCS; 2020-06-18)
PROC: 5A12012 Performance of Cardiac Output, Single, Manual (ICD-10-PCS; 2020-06-18)
PROC: 06HY33Z Insertion of Infusion Device into Lower Vein, Percutaneous Approach (ICD-10-PCS; 2020-06-18)
PROC: 3E033XZ Introduction of Vasopressor into Peripheral Vein, Percutaneous Approach (ICD-10-PCS; 2020-06-18)
DX: A41.2 Sepsis due to unspecified staphylococcus (principal); J15.9 Unspecified bacterial pneumonia; J96.01 Acute respiratory failure with hypoxia; R65.21 Severe sepsis with septic shock; E87.2 Acidosis; Z68.41 Body mass index [BMI] 40.0-44.9, adult; Z20.828 Contact with and (suspected) exposure to other viral communicable diseases; N18.2 Chronic kidney disease, stage 2 (mild); I12.9 Hypertensive chronic kidney disease with stage 1 through stage 4 chronic kidney disease, or unspecified chronic kidney disease; R19.7 Diarrhea, unspecified; E66.01 Morbid (severe) obesity due to excess calories; E87.6 Hypokalemia; E83.42 Hypomagnesemia; E83.39 Other disorders of phosphorus metabolism; Z78.1 Physical restraint status; Z87.898 Personal history of other specified conditions; Z79.899 Other long term (current) drug therapy
CPT/HCPCS: 36415; 36600; 71045; 80053; 82728; 82805; 83605; 83735; 83880; 84100; 84484; 85025; 86769; 87324; 87449; 87635; 92950; 93005; 93010; 94002; J0171; J0456; J0692; J1650; J1885; J2405; J2704; J2920; J3010; J3370; J3475; J3490; J7030; J7050; J7070; P9045; P9047; Q0163; S0028; U0003